=== PATIENT | female | born 2000 | race Caucasian/White ===

== ENCOUNTER 2019-03-03 20:31 | Emergency (ER) | payer OTHER ==
[~2019-03-03] VITALS: Ht 162.6 cm; Wt 50.8 kg
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
[2019-03-03] MEDS ORDERED: SULF-222 PO (21:10)
[2019-03-03 21:13] VITALS: BP 101/77
== END 2019-03-03 21:13 | disposition home or self-care (01) ==
LOC: EDUNIT# 20:31 → ER FS 20:33
DX: F10.129 Alcohol abuse with intoxication, unspecified (principal); L30.9 Dermatitis, unspecified; H92.13 Otorrhea, bilateral; T81.89XA Other complications of procedures, not elsewhere classified, initial encounter; F17.210 Nicotine dependence, cigarettes, uncomplicated
CPT/HCPCS: 99283

== ENCOUNTER 2022-02-04 10:11 | Emergency (ER) | payer SELFPAY ==
[~2022-02-04] VITALS: Ht 162.6 cm; Wt 48.8 kg
[~2022-02-04 10:11] MED LIST: SULF-222 PO
[2022-02-04] MEDS ORDERED: LIDOCAINE 1% INJ 20 ML VIAL INJ STA (10:23)
[2022-02-04] MEDS ORDERED: LIDOCAINE 1% INJ 20 ML VIAL ONE (10:24)
[2022-02-04] MEDS ORDERED: cefTRIAXone 1,000 MG VIAL IM STA (10:24)
[2022-02-04 10:25] VITALS: BP 124/78
[2022-02-04] MEDS ORDERED: LIDOCAINE 1% INJ 20 ML VIAL INJ ONE (10:30)
--- NOTE | 2022-02-04 10:37 | ED Integumentary General ---
General Chief Complaint: Skin/Wound Problems Stated Complaint: [facility] Nursing Triage Note: Patient reports she has had left groin pain/redness/swelling for 6 days. She states she went to the [facility] clinic on Saturday and received a rocephin injection, states she was prescribed antibiotics, but was not informed of the prescription, so she did not fill them. She states she went to the [place] walk-in clinic this morning and was referred to the ED. Source: patient History of Present Illness Date Seen by Provider: Feb 04, 2022 Time Seen by Provider: 10:18 Initial Comments 21-year-old female presenting with complaints of a swollen tender area to the left thigh. She states this started approximately 6 days ago. She was seen in [place] on Friday 02/02 and states they gave her an antibiotic shot and told her she was good to go. Apparently they had sent in a prescription that she never picked up. She said that nothing improved and got worse over the weekend so she came to the urgent care here in [place] today. They told her that she needed to come to the emergency department to have the wound drained because they would not do that or treat her with pain medicine. She presents with increased pain to the left upper thigh with redness and swelling. There has not been any drainage from the area. She does have a history of MRSA infection previously. She denies any wound or injury to cause this to occur. She denies having any other boils on her body. She has not been running a fever but has had some chills. She has been taking ibuprofen and acetaminophen for pain with little improvement. If she is laying still she denies having pain but when she is walking or there is palpation of the wound she has pain 10 out of 10 Timing/Duration: week Severity: severe Location: extremities (Upper left thigh) Possible Cause: no cause identified Modifying Factors: worse with other (Palpation and pressure makes it feel worse) Associated Symptoms: No blisters, No change in skin texture, No edema, No fever, No flushing, No headache, No hives, No jaundice, No malaise, No nasal congestion, No numbness, No pallor, No paresthesia, No petechiae, No rash, No sore throat; swelling/mass/lumps (Left upper thigh); No tingling Allergies and Home Medications Allergies Coded Allergies: No Known Drug Allergies (Unverified , 03/03/19) Patient Home Medication List Home Medication List Reviewed: Yes Mupirocin (Mupirocin) 2 % Oint...g., 22 GM TP UD Prescribed by: DONTE ALBA on 02/04/22 111 Sulfamethoxazole/Trimethoprim (Sulfamethoxazole-Tmp Ds Tablet) 1 Each Tablet, 1 EACH PO BID Prescribed by: DONTE ALBA on 03/03/192109 Sulfamethoxazole/Trimethoprim (Bactrim Ds Tablet) 1 Each Tablet, 1 EACH PO BID Prescribed by: DONTE ALBA on 02/04/22 111 Tramadol HCl (Tramadol HCl) 50 Mg Tablet, 50 MG PO Q6H PRN for PAIN Prescribed by: DONTE ALBA on 02/04/22 111 Review of Systems Review of Systems Constitutional: chills; No fever EENTM: no symptoms reported Respiratory: no symptoms reported Cardiovascular: no symptoms reported Gastrointestinal: no symptoms reported Genitourinary: no symptoms reported Musculoskeletal: see HPI (Tender to the swollen area on her left upper thigh) Skin: see HPI, change in color (Erythema on the left upper thigh with swelling and tenderness to palpation) Psychiatric/Neurological: Anxiety Past Wdztoof-Vgszdk-Kulocb Hx Patient Social History Tobacco Use?: Yes Smoking Status: Current Everyday Smoker Substance use?: Yes Substance type: Marijuana Substance frequency: Couple times a week Alcohol Use?: Yes Alcohol Frequency: Once in a while Pt feels they are or have been: No Seasonal Allergies Seasonal Allergies: No Past Medical History Surgery/Hospitalization HX: eczema Surgeries: Yes (oral surgery) Respiratory: No Cardiac: No Neurological: No Genitourinary: No Gastrointestinal: No Musculoskeletal: No Endocrine: No HEENT: No Cancer: No Psychosocial: No Integumentary: Yes Blood Disorders: No Physical Exam Vital Signs Vital Signs - First Documented 02/04/22 10:25 Temp 36.2 Pulse 104 Resp 16 B/P (MAP) 124/78 (93) Pulse Ox 100 O2 Delivery Room Air Capillary Refill : Less Than 3 Seconds General Appearance: no apparent distress, thin Cardiovascular: normal peripheral pulses Skin: warm/dry, other (Erythema with induration, fluctuance, warmth and tenderness to palpation in the left upper thigh.) Skin Problem Location: lower extremities (Left upper thigh) Skin Problem Character: abscess, erythema, swelling, tenderness, warm Lymphatic: inguinal node tender (L) Procedures/Interventions I&D : Site: Left upper thigh Blade Size: 11 I & D Procedure: betadine prep Progress After obtaining verbal consent from the patient the wound was cleaned with Betadine prep. 1 mL of 1% plain lidocaine was infiltrated in the tissue for anesthetic effect. Then using an 11 blade a single incision was made in the center of the painful swollen area. Copious amounts of purulent drainage were obtained and a culture of the drainage was sent to the lab. With steady gentle pressure from the outer edges moving in a copious amount of purulent drainage was obtained. There is also some blood mixed with this. Patient tolerated this relatively well without any immediate complication. A sterile clean dry dressi ng was applied. Counseled on management of abscess with I&D and infection. Counseled on follow-up and return precautions. Progress/Results/Core Measures Results/Orders My Orders Orders - DONTE ALBA MD Lidocaine 1% Inj 20 Ml (Xylocaine 1% Inj (02/04/22 10:23) Wound Culture (02/04/22 10:24) Wound Dressing-Ed (02/04/22 10:24) Ceftriaxone (Rocephin) (02/04/22 10:24) Lidocaine 1% Inj 20 Ml (Xylocaine 1% Inj (02/04/22 10:30) Lidocaine 1% Inj 20 Ml (Xylocaine 1% Inj (02/04/22 10:24) Medications Given in ED Current Medications Medications Dose Ordered Sig/Spencer Route Start Time Stop Time Status Last Admin Dose Admin Lidocaine HCl 2.1 ml ONCE ONCE INJ 02/04/22 10:30 02/04/22 10:31 DC 02/04/22 10:37 2.1 ML Vital Signs/I&O 02/04/22 10:25 Temp 36.2 Pulse 104 Resp 16 B/P (MAP) 124/78 (93) Pulse Ox 100 O2 Delivery Room Air Blood Pressure Mean: 93 Progress Progress Note : Progress Note After obtaining verbal consent from the patient the wound cut open for an I&D procedure. Copious amounts of purulent drainage were obtained however the area was still fairly tight and there did not feel to be a large cavity that could be packed. She was given Rocephin 1 g IM shot to help with the infection. Prescribed Bactrim since she has a history of MRSA. Also prescribed Bactroban for an ointment to help with infection. Counseled on follow-up and return precautions. Advised to establish care with [facility] as patient was concerned about cost since she does not have insurance. Departure Impression Primary Impression: Cutaneous abscess of left lower extremity Additional Impressions: Abscess of left thigh Hx MRSA infection Disposition: 01 HOME, SELF-CARE Condition: Stable Departure-Patient Inst. Decision time for Depature: 11:16 Referrals: NO,LOCAL PHYSICIAN (PCP) Primary Care Physician [facility] [place] Patient Instructions: Abscess Incision and Drainage ED, Boil, Adult ED, MRSA (DC) Add. Discharge Instructions: Keep wound clean and covered with gauze especially while it is draining. Change the dressing at least twice a day. You could try applying heat for 5 to 10 minutes every few hours while awake to help the area drain as well as increase the blood flow and antibiotic to the infection to help it heal. Take full course of antibiotics to treat for infection. If you need a different antibiotic based on culture of the drainage you will get a call in 2 to 3 days when those results come back. You may apply the antibiotic ointment twice a day over the any draining or open area of the wound. Establish care and follow-up through the [facility] or primary care provider records. You could call [facility] at [phone] to get established with care. All discharge instructions reviewed with patient and/or family. Voiced understanding. Scripts Sulfamethoxazole/Trimethoprim (Bactrim Ds Tablet) 1 Each Tablet 1 EACH PO BID for Abscess/Hx of MRSA for 10 Days, #20 TAB 0 Refills Prov: DONTE ALBA MD 02/04/22 Tramadol HCl (Tramadol HCl) 50 Mg Tablet 50 MG PO Q6H PRN for PAIN for 3 Days, #12 TAB 0 Refills Prov: DONTE ALBA MD 02/04/22 Mupirocin (Mupirocin) 2 % Oint...g. 22 GM TP UD for Abscess/MRSA history for 10 Days, #22 GM 0 Refills Apply a thin layer to open area twice a day x 10 days Prov: DONTE ALBA MD 02/04/22 DONTE ALBA MD Feb 04, 2022 10:37
[2022-02-04] MEDS ORDERED: TRM50T PO (11:18)
[2022-02-04] MEDS ORDERED: MUPI22OI2 TP (11:18)
[2022-02-04] MEDS ORDERED: SULF1TAB38 PO (11:18)
== END 2022-02-04 11:22 | disposition home or self-care (01) ==
LOC: EDUNIT# 10:11 → ER FS 10:13
DX: L02.416 Cutaneous abscess of left lower limb (principal); F17.200 Nicotine dependence, unspecified, uncomplicated; Z86.14 Personal history of Methicillin resistant Staphylococcus aureus infection; Z28.310 Unvaccinated for COVID-19
CPT/HCPCS: 10060; 87070; 87077; 87205